=== PATIENT | male | born 1970 | race Caucasian/White ===

== ENCOUNTER 2019-10-28 16:06 | Emergency (ER) | payer BC, SELFPAY ==
[2019-10-28 16:15] VITALS: BP 146/91; PULSE 96; RESP 20; TEMP 37.7; O2SAT 99
--- NOTE | 2019-10-28 16:25 | ED.GENADULT ---
HPI - General Adult General Chief complaint: Upper Respiratory Infection Stated complaint: fever/aches/cough/congestion Time Seen by Provider: 10/28/19 16:26 Source: patient and RN notes reviewed Mode of arrival: ambulatory Limitations: no limitations History of Present Illness HPI narrative: This is a 49 years old male presents to the office for an evaluation of cold symptoms for about one week. Symptoms include headache, sinus congestion, ear fullness, and cough. He also reports shortness of breath on exertion at times. He has tried [id number] Mucinex DM, Sudafed with no relief. He did receive influenza vaccine for this season. Denies sick contact. Related Data Allergies Allergy/AdvReac Type Severity Reaction Status Date / Time No Known Allergies Allergy Mild Verified 06/14/08 12:11 Review of Systems Review of Systems: Narrative: CONSTITUTIONAL: Reports feverish, chills and bodyache EYES: Denies redness, discharge. ENT: Reports head congestion CARDIOVASCULAR: Denies chest pain RESPIRATORY: Denies wheezing. Reports cough GASTROINTESTINAL: Denies nausea, vomiting, diarrhea. SKIN: Denies rash MUSCULOSKELETAL: Denies acute back pain NEUROLOGIC: Denies lightheaded PMFSH Past Medical History Medical History Low testosterone Mitral valve disorder Tendonitis Thrombocytopenia Surgical History Surgical History H/O mitral valve repair Family History Family History Father Hypertension Cerebrovascular accident Sibling Family history of malignant neoplasm Social History Social History Smoking status: Current every day smoker Alcohol intake: current Comments At time of signature, I agree with nursing past medical, surgical, social and family history. There is no relevant family history pertinent to the presenting complaint. Exam Narrative: Exam Narrative: GENERAL: This is a well-nourished, well-developed patient,ill apparent, in no apparent distress. EYES: Sclera clear/white. Vision is grossly intact. EARS: External ears normal, auditory canals clear and without drainage, TMs normal without perforation. Hearing grossly intact. NOSE: External nose normal with no obvious nasal discharge, nares edematous and erythema, sinus tenderness THROAT: Mucous membranes moist, posterior pharynx erythema and edematous with drainage. NECK: Neck supple, non-tender without lymphadenopathy, masses or thyromegaly. CARDIOVASCULAR: Regular rate and rhythm without murmurs, gallops, or rubs. RESPIRATORY: Clear to auscultation. Breath sounds equal bilaterally. No wheezes, rales, or rhonchi. GASTROINTESTINAL: Abdomen soft, non-tender, nondistended. Bowel sounds are active. No guarding. SKIN: flush, warm, intact with no suspicious lesions or rash, good texture and turgor. NEURO: awake, alert, and oriented to person, place and time. There were no obvious focal neurologic abnormalities. Steady gait Heidi Coma Scale Eye Opening: Spontaneous 4 Heidi Coma Scale Motor: Obeys Commands 6 [place] Coma Scale Verbal: Oriented 5 Course Vital Signs Vital signs: Vital Signs Temperature 99.8 F H 10/28/19 16:15 Pulse Rate 96 10/28/19 16:15 Respiratory Rate 20 10/28/19 16:15 Blood Pressure 146/91 H 10/28/19 16:15 Pulse Oximetry 99 10/28/19 16:15 Temperature 99.8 F H 10/28/19 16:15 Pulse Rate 96 10/28/19 16:15 Respiratory Rate 20 10/28/19 16:15 Blood Pressure 146/91 H 10/28/19 16:15 Pulse Oximetry 99 10/28/19 16:15 Medical Decision Making MDM Narrative Medical decision making narrative: Discharge instructions reviewed with patient, as well as provided in writing per nursing staff. The instructions also include specific and strict return/GO TO THE ER as well as f/u informat
== END 2019-10-28 16:44 | disposition home or self-care (01) ==
PROVIDERS: Emergency Provider Nurse Practitioner
DX: J06.9 Acute upper respiratory infection, unspecified (principal); I34.1 Nonrheumatic mitral (valve) prolapse; D69.6 Thrombocytopenia, unspecified
CPT/HCPCS: 87081; 87804; 87880; 99213; G0463

== ENCOUNTER → 2022-07-22 15:13 | Outpatient (CLI) | payer BC, SELFPAY ==
--- NOTE | ~2022-07-22 | XR_ITS ---
XR lumbar spine 2-3V DATE: 07/22/2022 15:54 INDICATION: Low back pain TECHNIQUE: AP, lateral, coned lateral lumbosacral views COMPARISON: None FINDINGS: Normal alignment of the lumbar spine. No fracture or bone destruction or spondylolisthesis. The lumbar pedicles are intact. There is mild degenerative disc disease at L3-4. Remaining lumbar and lumbosacral interspaces are wel l preserved. The sacroiliac joints are intact. IMPRESSION: Mild degenerative change Reviewed, dictated and finalized at location A. [employer] IMPRESSION: Mild degenerative change
== END ==
PROVIDERS: PCP Physician Assistant; Visit Provider Physician Assistant
DX: M54.50 Low back pain, unspecified (principal)
CPT/HCPCS: 72100